=== PATIENT | female | born 1955 | race Caucasian/White ===

== ENCOUNTER 2020-01-17 18:06 | Emergency (ER) | payer MEDICARE, OTHER ==
[2020-01-17] MEDS ORDERED: Bacitracin Oint 1 GM U/D Packet TOP ONE (19:11)
[2020-01-17] MEDS ORDERED: Lidocaine 1% 30 ML SDV INJECT ONE (19:11)
[2020-01-17] MEDS ORDERED: Acetaminophen 325 MG Tab PO ONE (19:17)
--- NOTE | 2020-01-17 19:42 | EDM.PDOC ---
ED HPI GENERAL MEDICAL PROBLEM - General Chief Complaint: Laceration Stated Complaint: TRIPPED ON THE DOCK. RIGHT SIDE OF HEAD BUMPED Time Seen by Provider: 01/17/20 19:30 Source of Information: Reports: Patient History Limitations: Reports: No Limitations - History of Present Illness INITIAL COMMENTS - FREE TEXT/NARRATIVE: ED with report of cleaning yard andstep back tripping and falling hitting face on corner of dock. No loss of consciousness, No dizziness or vomiting. Bleeding from right eye brow. righ side of face tender, No jaw pain. No neck or back pain. GCS 15 Right Head Pain Score (Numeric/FACES): 8 - Related Data Allergies Allergy/AdvReac Type Severity Reaction Status Date / Time No Known Allergies Allergy Verified 01/17/20 18:15 Home Meds: Home Meds . [Unable to Verify Home Med List] 01/17/20 [History] Past Medical History Cardiovascular History: Reports: Hypertension Oncologic (Cancer) History: Reports: Breast Social & Family History - Tobacco Use Smoking Status *Q: Never Smoker Second Hand Smoke Exposure: No - Recreational Drug Use Recreational Drug Use: No ED ROS GENERAL - Review of Systems Review Of Systems: Comprehensive ROS is negative, except as noted in HPI. ED EXAM, SKIN/RASH Exam: See Below Exam Limited By: No Limitations General Appearance: Alert, Mild Distress Eye Exam: Bilateral Eye: EOMI, Normal Fundi, PERRL Ears: Normal External Exam Nose: Normal Inspection Throat/Mouth: Normal Inspection Head: Normocephalic, Facial Swelling, Facial Tenderness (right eybrow laceration , bruising left outer ye, maxilla) Neck: Normal Inspection, Full Range of Motion. No: Tender Lateral, Tender Midline Respiratory/Chest: No Respiratory Distress, Lungs Clear, Normal Breath Sounds Cardiovascular: Regular Rate, Rhythm GI/Abdominal: Normal Bowel Sounds Back Exam: Normal Inspection Extremities: Normal Inspection, Normal Range of Motion Neurological: Alert, Oriented Psychiatric: Normal Affect Skin: Warm, Dry, Intact, Ecchymosis (right facial) Associated features: Tenderness (right lateral upper face) ED SKIN PROCEDURES - Laceration/Wound Repair Left Upper Other Appearance: Superficial Anesthetic Type: Local Local Anesthesia - Lidocaine (Xylocaine): 1% Plain Local Anesthetic Volume: 1cc Skin Prep: Chlorhexidine (Hibiciens) Closed with: Sutures Lac/Wound length In cm: 1 Suture Size: 5-0 # of Sutures: 3 Suture Type: Interrupted Sterile Dressing Applied: Nurse Tetanus Status Addressed: Yes Complications: No Course - Vital Signs Last Recorded V/S: Last Vital Signs Temp 97.9 F 01/17/20 18:10 Pulse 95 01/17/20 18:10 Resp 18 01/17/20 18:10 BP 144/68 H 01/17/20 18:10 Pulse Ox 98 01/17/20 18:10 - Orders/Labs/Meds Orders: Active Orders 24 hr Category Date Time Status Head wo Cont [CT] Urgent Exams 01/17/20 18:19 Taken Meds: Medications Discontinued Medications Generic Name Dose Route Start Last Admin Trade Name Nirav PRN Reason Stop Dose Admin Acetaminophen 650 mg 01/17/20 19:17 01/17/20 19:19 Tylenol PO 01/17/20 19:18 650 mg NOW ONE Administration Bacitracin 1 dose 01/17/20 19:11 01/17/20 19:17 Bacitracin Oint 1 Gm TOP 01/17/20 19:12 1 dose ONETIME ONE Administration Lidocaine HCl 30 ml 01/17/20 19:11 01/17/20 19:17 Xylocaine-Mpf 1% INJECT 01/17/20 19:12 30 ml ONETIME ONE Administration - Re-Assessments/Exams Free Text/Narrative Re-Assessment/Exam: 01/17/20 Alert oriented through ED stay. C/o headache and right facial pain, relieved with tylenol. Discharge instructions reviewed and provided with written as spuse not immediately available. Departure - Departure Time of Disposition: 19:38 Disposition: Home, Self-Care 01 Condition: Good Clinical Impression: Laceration Head injury Qualifiers: Encounter type: initial encounter Qualified Code(s): S09.90XA - Unspecified injury of head, initial encounter Fall Qualifiers: Encounter type: initial encounter Qualified Code(s): W19.XXXA - Unspecified fall, initial encounter - Discharge Information *PRESCRIPTION DRUG MONITORING PROGRAM REVIEWED*: No *COPY OF PRESCRIPTION DRUG MONITORING REPORT IN PATIENT GEOFFREY: No Instructions: Concussion, Adult, Head Injury, Adult, [id number], Sutures, Guido, or Adhesive Wound Closure, [id number] Forms: ED Department Discharge Additional Instructions: tylenol 650mg every 4 hours as needed for discomfort light activity 24 hours, change positions slowly urgent follow up confusion, repeated vomiting sutures out 10-14 days keep area clean and dry , wash lightly twice daily, foolow up if redness or drainage from wound ice pack to right side of face tonight light diet advance as tolerated no alcohol Sepsis Event Note - Evaluation Sepsis Screening Result: No Definite Risk - Focused Exam Vital Signs: Vital Signs Temp Pulse Resp BP Pulse Ox 01/17/20 18:10 97.9 F 95 18 144/68 H 98 Date Exam was Performed: 01/17/20 Time Exam was Performed: 22:38
== END 2020-01-17 19:48 | disposition home or self-care (01) ==
LOC: DL.ED 18:06
DX: S01.111A Laceration without foreign body of right eyelid and periocular area, initial encounter (principal); I10 Essential (primary) hypertension; W01.198A Fall on same level from slipping, tripping and stumbling with subsequent striking against other object, initial encounter; Z91.81 History of falling
CPT/HCPCS: 12011; 70450; 99282; 99283; A9270; J2001